=== PATIENT | male | born 1945 | race Caucasian/White ===

== ENCOUNTER 2020-11-17 10:14 | Outpatient (CLI) | payer OTHER, SELFPAY ==
--- NOTE | ~2020-11-17 | XR_ITS ---
EXAMINATION:XR_CERV2-3V_CR DATE: 11/17/2020 10:42 INDICATION: Neck pain TECHNIQUE: AP, lateral, and odontoid views of the cervical spine are provided. COMPARISON: 04/27/2018 FINDINGS: There are 2 mm of stable retrolisthesis of C3 on C4. The odontoid is intact. No fracture is identified. The vertebral body heights are normal. There is unchanged severe loss of intervertebral disc space height at C3-4. There is mild loss of intervertebral disc space height at C4-5 and C6-7. 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 Prevertebral soft tissues are normal. IMPRESSION: 1. Severe cervical spondylosis without acute findings or significant interval change. Reviewed, dictated and finalized at location B. IMPRESSION: 1. Severe cervical spondylosis without acute findings or significant interval jd pappas
== END 2020-11-17 10:15 | disposition home or self-care (01) ==
PROVIDERS: PCP Physician Assistant; Visit Provider Physician Assistant
DX: M54.2 Cervicalgia (principal)
CPT/HCPCS: 72040

== ENCOUNTER 2020-11-23 23:52 | Emergency (ER) | payer OTHER, SELFPAY ==
[2020-11-23 23:55] VITALS: BP 170/90; PULSE 64; RESP 18; O2SAT 97
--- NOTE | 2020-11-24 00:05 | PC.NURSE ---
Pt. signed AMA form and refused to be seen by ERP. Pt. signed paper p risks/benefits explained and got up to walk out of room to waiting room.
--- NOTE | 2020-11-24 00:22 | ED.GENADULT ---
HPI - General Adult General Chief complaint: Alcohol Stated complaint: alchol intoxication Source: patient Mode of arrival: ambulatory History of Present Illness HPI narrative: This gentleman was brought into the ER after he fell off a stool. He immediately chose to leave without being seen. He decided he did not want to be seen or evaluated for any potential injury. He appeared to be doing well when he left, according to the RN. I did not see him, assess him, or see him leave. He was in the ER only very briefly. Related Data Home Medications Medication Instructions Recorded Confirmed Unable to Obtain Home Medications 11/24/20 11/24/20 Allergies Allergy/AdvReac Type Severity Reaction Status Date / Time No Known Allergies Allergy Mild Unverified 10/27/03 17:52 Course Vital Signs Vital signs: Vital Signs Pulse Rate 64 11/23/20 23:55 Respiratory Rate 18 11/23/20 23:55 Blood Pressure 170/90 H 11/23/20 23:55 Pulse Oximetry 97 11/23/20 23:55 Pulse Rate 64 11/23/20 23:55 Respiratory Rate 18 11/23/20 23:55 Blood Pressure 170/90 H 11/23/20 23:55 Pulse Oximetry 97 11/23/20 23:55 Medical Decision Making Vital Signs Vital Signs: Vital Signs Pulse Rate 64 11/23/20 23:55 Respiratory Rate 18 11/23/20 23:55 Blood Pressure 170/90 H 11/23/20 23:55 Pulse Oximetry 97 11/23/20 23:55 Pulse Rate 64 11/23/20 23:55 Respiratory Rate 18 11/23/20 23:55 Blood Pressure 170/90 H 11/23/20 23:55 Pulse Oximetry 97 11/23/20 23:55 Discharge Plan Discharge Clinical Impression: Patient left without being seen Patient Disposition: Left Against Medical Advice Condition: Guarded Prognosis Prescriptions: No Action Unable to Obtain Home Medications RF: 0 Follow-up/Referrals: Sarah,MD Georgi [Primary Care Provider] - Time of Disposition: 00:25
== END 2020-11-24 00:15 | disposition left against medical advice (07) ==
LOC: CHSED 23:54
PROVIDERS: Emergency Provider Emergency Medicine; PCP Family Medicine
DX: Z53.8 Procedure and treatment not carried out for other reasons (principal)
CPT/HCPCS: 99199

== ENCOUNTER 2020-12-18 15:23 | Inpatient (IN) | payer MEDICARE, OTHER, SELFPAY ==
--- NOTE | ~2020-12-18 | MR_ITS ---
EXAMINATION: MR brain/brain stem wo/w con EXAM DATE: 12/19/2020 11:51 INDICATION: Dysarthria, recent stroke stroke. TECHNIQUE: Magnetic resonance imaging (MRI) of the brain/brain stem obtained without contrast. Sagit jannie T1, axial diffusion, gradient echo (T2*), T1, T2, FLAIR sequences obtained. Patient was then inj ected with 10 cc intravenous Multihance contrast. Axial and coronal postcontrast T1 weighted sequence s obtained. Correlation is made to head CT from yesterday. Correlation was made with brain MRI examin ation 04/26/2017. FINDINGS: Bilateral moderate-sized subdural hematomas of different ages, extending along the entire c onvexities and up to about 10 mm in maximal thickness. Signal on the left suggests subacute age and o n the right more chronic age. These are relatively well accommodated due to patient's moderate cerebr al atrophy. There are dilated perivascular spaces. There are no areas of restricted diffusion to suggest acute in farction. There is no acute hemorrhage seen on the T2*, a hemosiderin sensitive sequence. No intrap arenchymal brain mass lesion. There is mild periventricular and subcortical T2/FLAIR signal hyperint ensity, nonspecific but probably related to small vessel ischemic disease (microangiopathy). There is moderate prominence of the sulci and ventricles related to cerebral atrophy. There mild to modera te microangiopathy and moderate cerebral atrophy. Flow voids are seen in the cerebral arteries on the T2-weighted sequences consistent with their expected patency. The orbits are unremarkable. Soft ti ssue is unremarkable. Slight dural enhancement along subdural hematomas. Otherwise no areas of abnor mal enhancement. IMPRESSION: 1. Moderate-sized bilateral subdural hematomas, subacute on the left and more chronic on the right. These are relatively well accommodated due to patient's cerebral atrophy. 2. 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 Reviewed, dictated and finalized at location G. IMPRESSION: 1. Moderate-sized bilateral subdural hematomas, subacute on the left and more chronic on the right. These are relatively well accommodated due to patient's c erebral atrophy. 2. 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
--- NOTE | ~2020-12-18 | CT_ITS ---
EXAMINATION: CT brain wo con EXAM DATE: 12/18/2020 15:48 INDICATION: weakness, left SHERMAN weakness, left sherman, slurred speech . TECHNIQUE: Spiral CT of the head was performed without contrast. Axial, coronal and sagittal images were reviewed. The dose-length product (DLP) for this examination was 605.33 mGy-cm. The exposure w as tailored according to patient size, and iterative reconstruction (ASIR) was used as additional dos e reduction technique. Comparison is made to prior examination from 04/23/2017. FINDINGS: There are small to moderate bilateral subdural fluid collections extending along the entire ty of the convexities measuring slightly higher than CSF attenuation, could be subacute to chronic dooley bdural hematomas. No acute hemorrhage. No hyperdense arteries, intracranial mass, obstructive hydroce phalus, or evidence of acute infarction. Please note that initial head CT has limited sensitivity for small or acute infarctions. Nearly opacified left maxillary sinus which is likely chronic with maxil sade sinus wall thickening. IMPRESSION: 1. Small to moderate bilateral subdural fluid collections attenuation suggests subacute to chronic s ubdural hematomas. 2. No acute intracranial findings. As per stroke protocol, I called these results to emergency room, discussed with Ryley Negron at 12/18/2020 15:53 CDT. States she was diagnosed with stroke couple months ago and also [facility]. Reviewed, dictated and finalized at location A. IMPRESSION: 1. 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 2. No acute intracranial findings. As per stroke protocol, I called these results to emergency room, discussed wit h Regulo Stewart MD at 12/18/2020 15:53 CDT. States she was diagnosed with stroke couple months ago and also [facility].
--- NOTE | ~2020-12-18 | XR_ITS ---
XR chest 1V portable DATE: 12/18/2020 15:48 INDICATION: New weakness TECHNIQUE: Portable upright AP chest on 12/18/2020 at 1559 hours COMPARISON: 08/02/2018 two-view chest FINDINGS: Postoperative changes are again noted from right thoracotomy and gastric pull-through for h istory of esophageal cancer. Cardiomegaly. Aortic calcification, ectasia and unfolding. There is some increased density in the left lower thorax compared to 08/02/2018, which may indicate l eft lower lung infiltrate, atelectasis and/or left pleural effusion. Diffuse osteopenia. IMPRESSION: Limited single portable AP view; suggestion of left lower lung infiltrate, atelectasis an d/or left pleural effusion Cardiomegaly, aortic calcification Gastric pull-through and right thoracotomy Reviewed, dictated and finalized at location A. IMPRESSION: Limited single portable AP view; suggestion of left lower lung infi ltrate, atelectasis and/or left pleural effusion Cardiomegaly, aortic calcification Gastric pull-through and right thoracotomy
[2020-12-18 15:28] VITALS: BP 159/87; PULSE 73; PULSE 74; RESP 16; TEMP 36.2; O2SAT 96
--- NOTE | 2020-12-18 15:28 | ECG_ITS ---
Measurements Intervals [place] Rate: 69 P: 34 CO: 229 QRS: -1 QRSD: 117 T: 29 QT: 426 QTc: 459 Interpretive Statements SINUS RHYTHM WITH FIRST DEGREE AV BLOCK INTRAVENTRICULAR CONDUCTION DELAY BORDERLINE T WAVE ABNORMALITY- INFERIOR LEADS ABNORMAL ECG Electronically Signed On 12-18-2020 17:41:28 CDT by Davi Jimenes D.O.
--- NOTE | 2020-12-18 15:49 | ED.WEAKNESS ---
HPI - Weakness General Chief complaint: Weakness Stated complaint: pt thinks he had a stroke Time Seen by Provider: 12/18/20 15:40 Source: patient Mode of arrival: wheelchair Limitations: no limitations History of Present Illness HPI Narrative: 75-year-old man brought in today by a friend for slurred speech, weakness and not feeling well since approximately 3:00 p.m. this afternoon. Patient states that he had a stroke 2 months ago and that he is having similar symptoms. He denies any falls or injuries and has no chest pain, shortness of breath, palpitations, focal weakness, new numbness, or vomiting. He has a mild left-sided headache. He has had no recent illness, denies fever , alcohol, dysuria, abdominal pain, cough or cold symptoms, and rash. 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 MD Complaint: generalized weakness, numbness ( chronic bilateral lower extremity) and difficulty walking Onset (ago): minute(s) (25) Duration: constant Location: other Migration: none Severity: mild Quality: tingling Relieving factors: none Exacerbating factors: none Context: history of similar Associated symptoms: denies other symptoms Related Data Home Medications Medication Instructions Recorded Confirmed aspirin 325 mg PO DAILY 12/18/20 12/18/20 cholecalciferol (vitamin D3) 50 mcg PO DAILY 12/18/20 12/18/20 pravastatin 40 mg PO HS 12/18/20 12/18/20 spironolacton-hydrochlorothiaz 1 tablet PO EVERY OTHER DAY 12/18/20 12/18/20 verapamil 240 mg PO DAILY 12/18/20 12/18/20 Allergies Allergy/AdvReac Type Severity Reaction Status Date / Time No Known Allergies Allergy Mild Unverified 10/27/03 17:52 Review of Systems Constitutional: Constitutional: Denies chills, Denies fever(s) and Reports weakness Eyes: Eyes: Denies change in vision and Denies photophobia ENT: Denies dysphagia, Denies nasal congestion and Denies sore throat Cardiovascular: Cardiovascular: Denies chest pain and Denies radiating jaw, neck or arm pain Respiratory: Respiratory: Denies cough, Denies dyspnea and Denies wheezing Gastrointestinal: Gastrointestinal: Denies abdominal pain, Denies diarrhea, Denies nausea and Denies vomiting Musculoskeletal: Musculoskeletal: Denies back pain, Denies arthralgias and Denies joint swelling Integumentary/Breasts: Skin/Breast: Denies pruritus, Denies erythema and Denies rash Neurologic: Denies vertigo, Denies dizziness and Denies syncope Hematologic/Lymphatic: Hematologic/Lymphatic: Denies easy bleeding and Denies easy bruising Allergic/Immunologic: Allergic/Immunologic: Denies lip swelling and Denies throat swelling PMFSH Past Medical History Medical History (Updated 12/18/20 @ 17:53 by Regulo Stewart MD) 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 Dyslipidemia Hypertension Social History Social History (Updated 12/18/20 @ 16:46 by Regulo Stewart MD) Smoking status: Former smoker Alcohol intake: current Substance use: never Living arrangements: alone Occupation/Education: retired Exam Const: General: healthy appearing, no acute distress and alert Orientation/consciousness: patient oriented x3 Limitations: no limitations HENMT: Head: normal to inspection Ears: external ears normal, TM's normal bilaterally and EAC's normal General nose exam: Normal nares present Face and sinus: normal facial exam Mouth: Yes moist mucous membranes Throat: posterior oropharynx normal Eyes: Conjunctivae: conjunctivae normal Pupils: Equal, round and reactive pupils present EOM: EOMs intact bilaterally Resp: Effort & Inspection: normal respiratory effort and labored Auscultation: clear to auscultation bilaterally, rales, rhonchi and wheezes Cardio: Rate: regular rate Rhythm: regular rhythm Heart sounds: no murmurs GI: GI Palp: Yes Soft to palpation and No Tenderness to palpation present (GI) S
[2020-12-18 16:07] LABS: Base Excess ABG -6.9 mmol/L (0-2); Basophils Absolute Auto 0.05 K/mm3 (0.00-0.10); Basophils Percent Auto 0.3 % (0.0-1.0); Carboxyhemoglobin 0.4 % (0-1.5); Eosinophils Percent Auto 2.1 % (1.0-6.0); HCO3 ABG 17.1 mmol/L (23-29); Hematocrit 44.1 % (37.0-46.0); Hemoglobin 14.5 g/dL (12.4-15.3); Immature Granulocyte Absolute 0.08 K/mm3 (0.00-0.00); Immature Granulocyte Percent A 0.6 % (0.0-0.0); Lymphocytes Absolute Auto 1.53 K/mm3 (1.10-4.50); Lymphocytes Percent Auto 10.5 % (18.0-42.0); Mean Corpuscular HGB Conc 32.9 g/dL (32.0-36.0); Mean Corpuscular Volume 91.1 fL (78.0-102.0); Mean Platelet Volume 9.3 fl (8.7-11.0); Methemoglobin ABG 0.3 % (0-1.5); Monocytes Absolute Auto 0.75 K/mm3 (0.10-0.90); Monocytes Percent Auto 5.2 % (2.0-11.0); Neutrophils Absolute Auto 11.8 K/mm3 (1.7-7.2); Neutrophils Percent Auto 81.3 % (50.0-70.0); Oxygen Content ABG 20.2 %vol (16.0-22.0); Oxygen Saturation ABG 96.2 % (95-97); Oxyhemoglobin 95.5 % (94-100); PCO2 ABG 30.7 mmHg (35-45); PO2 ABG 88.4 mmHg (75-85); Platelet Count Result 236 K/mm3 (150-420); Red Blood Count 4.84 M/mm3 (4.70-6.10); Red Cell Distribution Width 12.7 % (11.6-14.4); Reduced Hemoglobin 3.8 % (0-1.5); White Blood Count 14.5 K/mm3 (4.8-10.8); pH ABG 7.36 (7.35-7.45)
[2020-12-18 16:08] VITALS: BP 134/70; PULSE 75; RESP 16; O2SAT 97
--- NOTE | 2020-12-18 16:09 | PC.NURSE ---
[facility] CONTACTED FOR PT TRANSFER
[2020-12-18 16:10] LABS: Device ROOM AIR; Modified Allen's Test Pass; Site Drawn RIGHT RADIAL
--- NOTE | 2020-12-18 16:17 | PC.NURSE ---
Dr. Stewart speaking with Dr. Burks with [facility] neurology.
[2020-12-18 16:21] LABS: Partial Thromboplastin Time 30.7 SEC (23.90-30.70); Prothrombin Time 11.1 Seconds (9.50-12.10)
[2020-12-18 16:26] LABS: Alanine Aminotransferase 24 U/L (16-63); Albumin Level 3.8 g/dL (3.4-5.0); Alkaline Phosphatase 106 U/L (46-116); Anion Gap 11 mmol/L (8-16); Aspartate Amino Transferase 15 U/L (15-37); Bilirubin,Total 0.5 mg/dL (0.00-1.00); Blood Urea Nitrogen 17 mg/dL (7-18); Calcium 9.7 mg/dL (8.5-10.1); Carbon Dioxide 27 mmol/L (21-32); Chloride 97 mmol/L (98-108); Estimated CRCL calculation 45 ml/min; Estimated Glomerular Filt Rate 48; Glucose 168 mg/dL (70-99); Osmolality Calculated 285 mOsm/kg (285-295); Sodium 135 mmol/L (136-145); Total Protein 7.7 g/dL (6.4-8.2); Troponin I 8.1 ng/L (0.00-60.4)
[2020-12-18 16:27] LABS: Ethanol < 3 mg/dL (0-6)
[2020-12-18 17:03] LABS: SARS-CoV-2 RNA PCR Negative (Negative)
[2020-12-18 17:05] LABS: Lactic Acid Reflex 3.2 mmol/L (0.4-2.0)
[2020-12-18] MEDS: SODIUM CHLORIDE 0.9% IV 1,000 ML 999 ML IV CONT (17:30)
[2020-12-18 17:45] VITALS: BP 139/86; PULSE 62; RESP 20; O2SAT 95
[2020-12-18 17:50] VITALS: BP 133/80; PULSE 70; RESP 16; TEMP 37.1; O2SAT 94; BMI 25.4
--- NOTE | 2020-12-18 17:50 | ADMGEN ---
This patient, Raymond Redd, was admitted to 2nd Floor Room 203-2. Patient/family oriented to hospital policies and general routines including ID bracelet, bed and alarms, visiting hours, pain management, procedures, bathroom and other care routines, personal items, smoking policy, room service/diet, and visiting hours. Information on how to activate the Rapid Response Team has been discussed. Patient/Family are encouraged to report perceived risks to care and to ask questions if they do not understand what they are told or what they should do.
[2020-12-18 19:23] LABS: Add Urine Microscopic? YES; Appearance Urine Clear (Clear); Bilirubin Urine Negative (Negative); Blood Urine 2+ (Negative); Color Urine Yellow (Yellow); Glucose Urine UA Negative (Negative); Ketones Urine Negative (Negative); Leukocyte Esterase Ur Negative LEU/UL (Negative); Nitrate Urine Negative (Negative); Protein Urine Negative (Negative); Urobilinogen Urine 0.2 mg/dL (0.2-1.0); pH Urine 5.5 (5.0-8.0)
[2020-12-18 19:30] LABS: RBC Urine 0-2 /hpf (0-2); WBC Urine 0-3 /hpf (0-3)
[2020-12-18 19:31] LABS: Bacteria Urine Trace /hpf; Squamous Epithelial Cell Urine Rare /hpf (Few)
[2020-12-18 19:48] LABS: Reflex Lactic Acid Yes or No Add Lactic
[2020-12-18 20:00] VITALS: BP 127/61; PULSE 70; RESP 20; TEMP 36.7; O2SAT 95
[2020-12-18] MEDS: PRAVASTATIN SODIUM 20 MG TABLET 40 MG PO (20:03)
[2020-12-18 20:44] LABS: Lactic Acid 2.3 mmol/L (0.4-2.0)
[2020-12-18] MEDS: SODIUM CHLORIDE 0.9% IV 1,000 ML 100 ML IV CONT (22:02)
[2020-12-19] VITALS: BP 134/70; PULSE 60; PULSE 61; RESP 20; TEMP 36.5; O2SAT 94
[2020-12-19] MEDS: SODIUM CHLORIDE 0.9% IV 1,000 ML 999 ML IV CONT (03:06)
[2020-12-19] MEDS: SODIUM CHLORIDE 0.9% IV 1,000 ML 100 ML IV CONT ×2 (03:10→09:41)
[2020-12-19 04:00] VITALS: BP 145/77; PULSE 61; PULSE 63; RESP 20; TEMP 36.6; O2SAT 97
[2020-12-19 05:36] LABS: Basophils Absolute Auto 0.04 K/mm3 (0.00-0.10); Basophils Percent Auto 0.4 % (0.0-1.0); Eosinophils Absolute Auto 0.42 K/mm3 (0.02-0.50); Eosinophils Percent Auto 4.2 % (1.0-6.0); Hematocrit 38.2 % (37.0-46.0); Immature Granulocyte Absolute 0.05 K/mm3 (0.00-0.00); Immature Granulocyte Percent A 0.5 % (0.0-0.0); Lymphocytes Percent Auto 22.9 % (18.0-42.0); Mean Corpuscular Hemoglobin 30.6 pg (27.0-31.0); Mean Corpuscular Volume 89.9 fL (78.0-102.0); Monocytes Absolute Auto 0.84 K/mm3 (0.10-0.90); Monocytes Percent Auto 8.4 % (2.0-11.0); Neutrophils Absolute Auto 6.4 K/mm3 (1.7-7.2); Neutrophils Percent Auto 63.6 % (50.0-70.0); Platelet Count Result 213 K/mm3 (150-420); Red Blood Count 4.25 M/mm3 (4.70-6.10); Red Cell Distribution Width 12.9 % (11.6-14.4)
[2020-12-19 05:47] LABS: Lactic Acid Reflex 1.9 mmol/L (0.4-2.0)
[2020-12-19 05:54] LABS: Alanine Aminotransferase 18 U/L (16-63); Alkaline Phosphatase 89 U/L (46-116); Anion Gap 10 mmol/L (8-16); Aspartate Amino Transferase 15 U/L (15-37); Bilirubin,Total 0.5 mg/dL (0.00-1.00); Blood Urea Nitrogen 13 mg/dL (7-18); Calcium 8.8 mg/dL (8.5-10.1); Carbon Dioxide 26 mmol/L (21-32); Chloride 103 mmol/L (98-108); Estimated CRCL calculation 54 ml/min; Estimated Glomerular Filt Rate > 60; Glucose 105 mg/dL (70-99); Osmolality Calculated 288 mOsm/kg (285-295); Potassium 3.6 mmol/L (3.5-5.1); Sodium 139 mmol/L (136-145); Total Protein 6.1 g/dL (6.4-8.2)
[2020-12-19 05:55] LABS: Troponin I 8.7 ng/L (0.00-60.4)
[2020-12-19 08:00] VITALS: BP 136/76; PULSE 60; PULSE 76; RESP 18; TEMP 37.1; O2SAT 94
[2020-12-19] MEDS: ASPIRIN 325 MG ENTERIC TABLET PO (09:36)
[2020-12-19] MEDS: VERAPAMIL HCL ER 120 MG TABLET 240 MG PO (09:36)
[2020-12-19] MEDS: hydroCHLOROthiazide 25 MG TABLET PO (09:36)
[2020-12-19] MEDS: CHOLECALCIFEROL 1,000 UNITS TABLET 2000 UNITS PO (09:36)
[2020-12-19] MEDS: SPIRONOLACTONE 25 MG TABLET PO (09:37)
--- NOTE | 2020-12-19 10:34 | PM.IMPN ---
Subjective Date/time seen: 12/19/20 10:34 PATIENT BEING TRANSFERED TO [facility] FOR NEUROSURGICAL CONSULTATION PLEASE SEE SAME DAY ADMIT DISCHARGE NOTE Review of Systems Constitutional: Constitutional: Reports no additional constitutional complaints, Denies chills, Denies fever(s), Denies headache(s) and Reports lethargy Eyes: Eyes: Reports no additional eye complaints, Denies blurry vision and Denies change in vision ENT: Reports system reviewed and no additional complaints, except as documented and Denies dizziness Cardiovascular: Cardiovascular: Reports no additional cardiovascular complaints, Denies chest pain and Denies chest pain at rest Respiratory: Respiratory: Reports no additional respiratory complaints, Denies cough, Denies dyspnea and Denies dyspnea on exertion Gastrointestinal: Gastrointestinal: Reports no additional gastrointestinal complaints and Denies abdominal pain Musculoskeletal: Musculoskeletal: Reports no additional musculoskeletal complaints Neurologic: Reports system reviewed and no additional complaints, except as documented, Reports Abnormal speech present (Pt states he does not feel like he is talking normal) and Reports numbness (lower extremities, chronic) Comments: state he does not believe he could get up and walk at the moment Psychiatric: Psychiatric: Reports no additional psychiatric complaints Exam Const: General: cooperative, no acute distress, alert, awake and Physically active (engages in communication and assessment); No confusion, diaphoretic or intoxicated appearing Nutritional Appearance: average body habitus Orientation/consciousness: oriented to person, oriented to place and oriented to time HENMT: Head: normal to inspection, normocephalic, atraumatic and other (No abrasions noticed from Pts fall 3 weeks ago) Ears: hearing grossly normal bilaterally General nose exam: Normal external nose present Face and sinus: normal facial exam and face symmetric Eyes: General: appearance normal, both eyes and all related structures Alignment and Position: alignment normal and position normal Direct Ophthalmoscopy: no photophobia Neck: Neck: normal visual inspection, no lymphadenopathy and no JVD Resp: Effort & Inspection: normal respiratory effort and able to speak in complete sentences (with a few pauses while searching for correct words) Auscultation: clear to auscultation bilaterally Cardio: Rate: regular rate Heart sounds: S1 normal heart sound present and S2 normal heart sound present GI: GI Palp: Yes Soft to palpation and No Tenderness to palpation present (GI) Auscultation: normal bowel sounds Skin: General skin exam: normal color Trauma: no lacerations or abrasions Neuro: General: oriented to person, oriented to place and oriented to time Cranial nerves: Yes CN's II-XII intact bilaterally, Yes Bilaterally intact EOM present, Yes Normal facial strength present, Yes facial symmetry, Yes Midline tongue present, Yes Normal hearing present and Yes Ability to bilaterally elevate shoulders present Cognition (Neuro): normal cognition Speech: Abnormal speech present (searches for right words, does not use incorrect words) Coordination: No [id number] test normal (misses nose and finger at times ) Extrem: General: normal to inspection, full ROM, no pedal edema and no calf tenderness Right upper extremity: normal to inspection Left upper extremity: normal to inspection Right lower extremity: normal to inspection Left lower extremity: normal to inspection Psych: Appearance: grossly normal Mental Status: mental status grossly normal Affect: normal affect Attitude: cooperative Thought content: Yes Normal thought content present Objective Data Vital Signs Vital Signs: Vital Signs - 24 hr 12/18/20 15:28 12/18/20 16:08 12/18/20 17:45 Temperature 97.2 F L Pulse Rate 74 75 62 Respiratory Rate 16 16 20 Blood Pressure 159/87 H 134/70 139/86 Pulse Oximet
--- NOTE | 2020-12-19 11:00 | PC.NURSE ---
Patient transported off of floor via wheelchair for MRI
--- NOTE | 2020-12-19 11:06 | PM.IMHP ---
H&P: HPI History of Present Illness Date/Time: 12/19/20 11:06 PATIENT BEING TRANSFERED TO [facility] FOR NEUROSURGICAL CONSULTATION PLEASE SEE SAME DAY ADMIT DISCHARGE NOTE Called to room by RN as Pt stated he was feeling the same again as when he came into the ER yesterday. Pt states that he does not feel like he can get his words out correctly. He also indicated that he does not feel like he could get up and be able to walk. Pt denies any CP, SOB, Abdominal issues or pain. He admits to LE neuropathy/numbness, feeling like he may not be able to walk, states that he is an alcoholic who stopped drinking 27 years ago until recently when he found out he had esophageal CA and drank before he went in for a procedure. Since then he stated he went out with some friends and drank to the point he fell down hitting his head about 3 weeks ago. He came to the ER but left without being seen. Review of Systems Constitutional: Constitutional: Reports no additional constitutional complaints, Denies chills, Denies fever(s), Denies headache(s) and Reports lethargy Eyes: Eyes: Reports no additional eye complaints, Denies blurry vision and Denies change in vision ENT: Reports system reviewed and no additional complaints, except as documented, Reports Normal hearing present, Denies dizziness and Denies headache(s) Cardiovascular: Cardiovascular: Reports no additional cardiovascular complaints, Denies chest pain, Denies chest pain at rest, Denies dyspnea and Denies dyspnea on exertion Respiratory: Respiratory: Reports no additional respiratory complaints, Denies cough, Denies dyspnea and Denies dyspnea on exertion Gastrointestinal: Gastrointestinal: Reports no additional gastrointestinal complaints and Denies abdominal pain Musculoskeletal: Musculoskeletal: Reports no additional musculoskeletal complaints and Reports numbness (lower extremities, chronic) Neurologic: Reports system reviewed and no additional complaints, except as documented, Reports Normal hearing present, Reports Abnormal speech present (Pt states he does not feel like he is talking normal), Denies confusion, Denies dizziness, Denies headache(s) and Reports numbness (lower extremities, chronic) Psychiatric: Psychiatric: Reports no additional psychiatric complaints and Denies confusion PMF Past Medical History Medical History (Updated 12/19/20 @ 15:46 by Galileo Rangel, SIZE CHANGER-C) 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 Dyslipidemia Hypertension Social History Social History (Updated 12/18/20 @ 16:46 by Regulo Stewart MD) Smoking status: Former smoker Tobacco type: cigarettes Alcohol intake: current Drinks per week: 3 Substance use: never Living arrangements: alone Occupation/Education: retired Gender identity (if verbalized by the patient): Male Sexual Orientation (if Verbalized by the Patient): Straight or Heterosexual Spiritual care concerns: No Meds Home Medications and Allergies Home Medications Medication Instructions Recorded Confirmed Type cholecalciferol (vitamin D3) 50 mcg PO DAILY 12/18/20 12/18/20 History pravastatin 40 mg PO HS 12/18/20 12/18/20 History spironolacton-hydrochlorothiaz 1 tablet PO EVERY OTHER DAY 12/18/20 12/18/20 History verapamil 240 mg PO DAILY 12/18/20 12/18/20 History Allergies Allergy/AdvReac Type Severity Reaction Status Date / Time adhesive tape AdvReac Mild Rash Verified 12/18/20 18:51 Vital Signs Vital Signs - 24 hr 12/18/20 15:28 12/18/20 16:08 12/18/20 17:45 Temperature 97.2 F L Pulse Rate 74 75 62 Respiratory Rate 16 16 20 Blood Pressure 159/87 H 134/70 139/86 Pulse Oximetry 96 97 95 12/18/20 17:50 12/18/20 20:00 12/19/20 00:00 Temperature 98.7 F 98.0 F 97.7 F Pulse Rate 70 70 61 Respiratory Rate 16 20 20 Blood Pressure 133/80 127/61 134/70 Pulse Oximetry 94 95 94 12/19/20 04:00 12/19/20 08:00 Temperature 97.9 F 98.7 F Pulse Rate 61 76 Respiratory Rate 20 18 B
[2020-12-19 11:34] LABS: Vitamin B12 642 pg/mL (193-986)
[2020-12-19 12:00] VITALS: BP 145/73; PULSE 74; PULSE 77; RESP 18; TEMP 37.4; O2SAT 97
--- NOTE | 2020-12-19 15:26 | PM.SD2 ---
Same Day Admit/Disch: HPI History of Present Illness Chief complaint: pt thinks he had a stroke Narrative: Raymond Redd is a 75 year old male with a recent history of the following. 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 Burks as which time according to ER notes Bilat Carotids/Echo/CTA and MRI of the Brain were complete with no significant findings, 3 weeks ago Pt went out with friends had a little too much to drink fell down and hit his head. He came to [facility] at that time but left prior to being seen by the provider that was on that day. That date was 11/24/2020. PMHx of Pneumonia, HTN, Dyslipidemia CT Head 12/18/2020 IMPRESSION: 1. 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 2. No acute intracranial findings. MRI of Brain 12/19/2020 IMPRESSION: 1. Moderate-sized bilateral subdural hematomas, subacute on the left and more chronic on the right. These are relatively well accommodated due to patient's cerebral atrophy. 2. 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 Contacted the [facility] as Pts first choice to be transferred however I was informed that the [facility] neurosurgical team does not do surgery. I then called the Pt's second choice [facility] which he was accepted both by the Neurosugeon Dr. Florez and Hospitalist Dr. East. Thank you very much for talking with be regarding this Pt and transfer to your facility. Called to room by RN as Pt stated he was feeling the same again as when he came into the ER yesterday. Pt states that he does not feel like he can get his words out correctly. He also indicated that he does not feel like he could get up and be able to walk. Pt denies any CP, SOB, Abdominal issues or pain. He admits to LE neuropathy/numbness (chronic), feeling like he may not be able to walk, states that he is an alcoholic who stopped drinking 27 years ago until recently when he found out he had esophageal CA and drank before he went in for a procedure. Since then he stated he went out with some friends and drank to the point he fell down hitting his head about 3 weeks ago. He came to the ER but left without being seen. 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 Dyslipidemia Hypertension Social History Social History (Updated 12/18/20 @ 16:46 by Regulo Stewart MD) Smoking status: Former smoker Tobacco type: cigarettes Alcohol intake: current Drinks per week: 3 Substance use: never Living arrangements: alone Occupation/Education: retired Gender identity (if verbalized by the patient): Male Sexual Orientation (if Verbalized by the Patient): Straight or Heterosexual Spiritual care concerns: No Same Day Admit/Disch: Med Pre-admit Medications Home Medications Medication Instructions Recorded Confirmed Type cholecalciferol (vitamin D3) 50 mcg PO DAILY 12/18/20 12/18/20 History pravastatin 40 mg PO HS 12/18/20 12/18/20 History spironolacton-hydrochlorothiaz 1 tablet PO EVERY OTHER DAY 12/18/20 12/18/20 History verapamil 240 mg PO DAILY 12/18/20 12/18/20 History Exam Const: General: cooperative, no acute distress, alert, awake and Physically active (engages in communication and assessment); No confusion, diaphoretic or intoxicated appearing Nutritional Appearance: average body habitus Orientation/consciousness: oriented to person, oriented to place, oriented to time and No confusion HENMT: Head: normal to inspection, normocephalic, atraumatic and other (No abrasions noticed from Pts fall 3 weeks ago) Ears: hearing grossly normal bilaterally General nose exam: Normal external nose present Face and sinus: normal facial exam
[2020-12-19 16:00] VITALS: BP 165/89; PULSE 71; PULSE 78; RESP 18; TEMP 37.3; O2SAT 95
[2020-12-19 20:00] VITALS: BP 167/79; PULSE 68; PULSE 78; RESP 18; TEMP 37.1; O2SAT 94
--- NOTE | 2020-12-19 22:15 | PC.NURSE ---
Patient's son called. He requested info about his father's status with transfer. When told he had been accepted [facility] but were waiting for an open bed. Became irate and upset. Began using profanity at nurse and threatened to ijeoma. Stated all we had to do was make a phone call and we could get him transferred to [facility]. Attempted to explain process was more involved than that but he was not listening. Spoke with Dr. Denny call to [place] access line-currently Neuro ICU does not have openings and not anticipating at any opening soon. Asked if he wanted us to refer father. Stated he needed to make some phone calls. Did apologize for language.
--- NOTE | 2020-12-19 22:44 | PC.NURSE ---
Dr. Denny came up to speak with patient. Okayed giving food at this time.
--- NOTE | 2020-12-19 22:49 | PM.EVENT ---
Event Note Event Note Event Note: patient awaiting transfer to [facility] neurology unit, the patient has been accepted but apparently there is currently no bed available and they will transfer and call as soon as a bed is made available. The patient has been kept NPO and the patient is upset and has been calling family including his son which according to nurses has been using threatening tones, threatening to D[facility] the hospital. But the patient is stable neurologically he is currently stable with no neurological deficits currently no slurred speech. Talked to patient and advised him that we will have him eat something and have something to drink and he voiced his understanding still little frustrated that we could in some transfer him to [facility], but told the patient that there is currently no beds available at that facility. Again he voices understanding and he is a little less anxious secondary to the fact that he is stable and that was made apparent to him, and that he is able to have something to eat.
[2020-12-20] VITALS: BP 142/84; PULSE 62; PULSE 66; RESP 18; TEMP 37.1; O2SAT 93
--- NOTE | 2020-12-20 02:05 | PC.NURSE ---
Received call from [facility] access center for update on bed. Patient still on lis. Hopefully open bed today.
[2020-12-20 04:00] VITALS: BP 143/79; PULSE 64; PULSE 66; RESP 18; TEMP 37.1; O2SAT 93
[2020-12-20 08:00] VITALS: BP 155/83; PULSE 63; PULSE 70; RESP 18; TEMP 37; O2SAT 94
[2020-12-20] MEDS: VERAPAMIL HCL ER 120 MG TABLET 240 MG PO (09:58)
[2020-12-20] MEDS: ASPIRIN 325 MG ENTERIC TABLET PO (09:58)
[2020-12-20] MEDS: CHOLECALCIFEROL 1,000 UNITS TABLET 2000 UNITS PO (09:58)
--- NOTE | 2020-12-20 10:24 | PC.NURSE ---
Report called to [facility] at [place] room 40A
--- NOTE | 2020-12-20 11:01 | PM.EVENT ---
Event Note Event Note Event Note: At the start of todays shift I was informed that [facility] did not have any beds for this Pt. Yesterday when I spoke with the U doctors and the nurse at the transfer line I was informed that the Pt was accepted. At NO time did anyone mention no beds available or that the Pt would be on a wait list during yesterdays phone calls. I called [facility] this morning promptly and spoke with Dr. Luis, neurosurgeon, who accepted the Pt. I was in formed by the nurse at the transfer line for [place] they had a few beds available. Pt is going to room [id number] at the [facility]. 1105 hours approximately the Ambulance has arrived to transport the Pt to [place].
--- NOTE | 2020-12-20 11:05 | PC.NURSE ---
Patient transported off of floor via stretcher with [facility] being transferred to [place] room 40A.
[2020-12-25 07:48] LABS: Red Blood Cell Folate 708 ng/mL RBC (>280)
== END 2020-12-20 11:05 | disposition short-term general hospital (02) | DRG 82 ==
LOC: CHSED 16:50 → CHS2ND 17:27
PROVIDERS: Nurse Practitioner Family; Admitting Provider Emergency Medicine; Emergency Provider Emergency Medicine; PCP Physician Assistant; Visit Provider Emergency Medicine
DX: R47.1 Dysarthria and anarthria (principal); S06.5X9A Traumatic subdural hemorrhage with loss of consciousness of unspecified duration, initial encounter; R20.0 Anesthesia of skin; R06.02 Shortness of breath; J44.9 Chronic obstructive pulmonary disease, unspecified; J18.9 Pneumonia, unspecified organism; C15.9 Malignant neoplasm of esophagus, unspecified; G62.9 Polyneuropathy, unspecified; Z20.822 Contact with and (suspected) exposure to COVID-19; Z87.891 Personal history of nicotine dependence; G81.91 Hemiplegia, unspecified affecting right dominant side; E78.5 Hyperlipidemia, unspecified; I10 Essential (primary) hypertension; Z86.73 Personal history of transient ischemic attack (TIA), and cerebral infarction without residual deficits; W19.XXXA Unspecified fall, initial encounter
CPT/HCPCS: 36415; 36600; 70450; 70553; 71045; 80053; 80307; 81001; 82375; 82607; 82747; 82805; 83050; 83605; 84484; 85025; 85610; 85730; 87040; 87086; 93005; 99285; A9270; A9577; C9803; J0456; J0696; J7030; U0003; U0005

== ENCOUNTER 2021-02-21 12:30 | Emergency (ER) | payer MEDICARE, OTHER, SELFPAY ==
--- NOTE | ~2021-02-21 | CT_ITS ---
EXAMINATION: CT brain wo con INDICATION: Left hand numbness COMPARISON: 12/18/2020 TECHNIQUE: Standard unenhanced head CT. The dose-length product (DLP) was 681.00 mGy-cm. The mA was a djusted according to patient size. Iterative reconstruction technique was employed. FINDINGS: There are persistent bilateral extra-axial fluid collections with slight increase in size a nd heterogeneous attenuation since the comparison examination. There is slightly worsened mass effect on the brain. There is no acute intraparenchymal hemorrhage. No evidence of mass lesion. No evidence of acute infarction. There is mild periventricular and subcortical hypodensity probably related to s mall vessel ischemic disease. There is mild prominence of the sulci and ventricles related to cerebra l atrophy. Intracranial calcified cerebral atherosclerosis is noted. There is no mass effect or midli ne shift. The orbits and soft tissues are unremarkable. There is chronic left maxillary sinusitis. IMPRESSION: 1. Bilateral subdural hematomas with interval increase in thickness and heterogeneous attenuation. Fi ndings likely reflect interval acute subdural hemorrhage with evolving hematomas. These findings were discussed with Dr. Luis Chacon MD in the Emergency Department at 1357 hours on 02/21/2021. 2. Age related findings. Reviewed, dictated and finalized at location A. IMPRESSION: 1. Bilateral subdural hematomas with interval increase in thickness and heterog eneous attenuation. Findings likely reflect interval acute subdural hemorrhage with evolving hematomas. These findings were discussed with Dr. Luis Chacon MD in the Emergency Department at 1357 hours on 02/21/2021. 2. Age related findings.
[2021-02-21 12:30] VITALS: BP 135/85; PULSE 75; PULSE 80; RESP 14; TEMP 36.8; O2SAT 96
[2021-02-21 12:54] LABS: Glucose Point of Care 96 mg/dl (65-105)
--- NOTE | 2021-02-21 13:22 | ECG_ITS ---
Measurements Intervals [place] Rate: 77 P: 33 MN: 222 QRS: 0 QRSD: 114 T: 15 QT: 371 QTc: 420 Interpretive Statements SINUS RHYTHM WITH FIRST DEGREE AV BLOCK LOW QRS VOLTAGE IN LIMB LEADS ABNORMAL ECG Electronically Signed On 02-21-2021 20:48:46 CDT by Davi Jimenes D.O.
--- NOTE | 2021-02-21 13:23 | ED.WEAKNESS ---
HPI - Weakness General Chief complaint: Weakness Stated complaint: left hand when numb Time Seen by Provider: 02/21/21 12:55 Source: patient Mode of arrival: ambulatory Limitations: no limitations History of Present Illness HPI Narrative: Patient presents after having transient numbness in left hand. This lasted about 15 minutes and resolved. This appear to affect both the distribution of the radial and ulnar nerve. He has had also a sensation of his balance being off, which has been moderately severe, and ongoing throughout this day, when walking. He has no focal weakness at present. Onset (ago): hour(s) Duration: intermittent Migration: none Severity: moderate Quality: numbness Relieving factors: other (spontaneous relief) Exacerbating factors: none Associated symptoms: denies other symptoms Related Data Home Medications Medication Instructions Recorded Confirmed cholecalciferol (vitamin D3) 50 mcg PO DAILY 12/18/20 02/21/21 pravastatin 40 mg PO HS 12/18/20 02/21/21 spironolacton-hydrochlorothiaz 1 tablet PO EVERY OTHER DAY 12/18/20 02/21/21 verapamil 240 mg PO DAILY 12/18/20 02/21/21 folic acid 1 mg PO DAILY 02/21/21 02/21/21 levetiracetam 500 mg PO BID 02/21/21 02/21/21 Allergies Allergy/AdvReac Type Severity Reaction Status Date / Time adhesive tape AdvReac Mild Rash Verified 12/18/20 18:51 Review of Systems Constitutional: Constitutional: Reports no additional constitutional complaints Eyes: Eyes: Reports no additional eye complaints ENT: Reports system reviewed and no additional complaints, except as documented Cardiovascular: Cardiovascular: Reports no additional cardiovascular complaints Respiratory: Respiratory: Reports no additional respiratory complaints Gastrointestinal: Gastrointestinal: Reports no additional gastrointestinal complaints Genitourinary: Genitourinary: Reports no additional male genitourinary complaints Musculoskeletal: Musculoskeletal: Reports no additional musculoskeletal complaints Integumentary/Breasts: Skin/Breast: Reports system reviewed and no additional complaints, except as docu Neurologic: Reports system reviewed and no additional complaints, except as documented Psychiatric: Psychiatric: Reports no additional psychiatric complaints Endocrine: Endocrine: Reports no additional endocrine complaints Hematologic/Lymphatic: Hematologic/Lymphatic: Reports no additional hematologic/lymphatic complaints Allergic/Immunologic: Allergic/Immunologic: Reports no additional allergic/immunologic complaints [facility] Past Medical History Medical History (Updated 02/21/21 @ 18:59 by Luis Chacon MD) 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 Dyslipidemia Esophageal cancer Hypertension Surgical History Surgical History (Updated 02/21/21 @ 18:42 by Luis Chacon MD) History of esophageal surgery Hx of hernia repair Family History Family History Other Family history non-contributory Social History Social History Smoking status: Former smoker Tobacco type: cigarettes Alcohol intake: current Drinks per week: 3 Substance use: never Gender identity (if verbalized by the patient): Male Spiritual care concerns: No Exam Const: General: no acute distress and alert Orientation/consciousness: patient oriented x3 HENMT: Head: normal to inspection Ears: external ears normal and TM's normal bilaterally General nose exam: Normal external nose present Mouth: Yes Normal oral and palatal mucosa present Throat: posterior oropharynx normal Eyes: Conjunctivae: conjunctivae normal Neck: Neck: normal visual inspection Chest: Chest palpation & inspection: normal inspection of the chest Resp: Effort & Inspection: normal respiratory effort Auscultation: clear to auscultation bilaterally Cardio: Rate: regular rate Rhythm: regular rhythm
[2021-02-21 13:48] LABS: Basophils Absolute Auto 0.04 K/mm3 (0.00-0.10); Basophils Percent Auto 0.4 % (0.0-1.0); Eosinophils Absolute Auto 0.26 K/mm3 (0.02-0.50); Eosinophils Percent Auto 2.8 % (1.0-6.0); Hemoglobin 14.8 g/dL (12.4-15.3); Immature Granulocyte Absolute 0.03 K/mm3 (0.00-0.00); Immature Granulocyte Percent A 0.3 % (0.0-0.0); Lymphocytes Absolute Auto 2.42 K/mm3 (1.10-4.50); Lymphocytes Percent Auto 25.6 % (18.0-42.0); Mean Corpuscular HGB Conc 34.4 g/dL (32.0-36.0); Mean Corpuscular Hemoglobin 30.5 pg (27.0-31.0); Mean Corpuscular Volume 88.5 fL (78.0-102.0); Mean Platelet Volume 8.5 fl (8.7-11.0); Monocytes Absolute Auto 0.93 K/mm3 (0.10-0.90); Monocytes Percent Auto 9.8 % (2.0-11.0); Neutrophils Absolute Auto 5.8 K/mm3 (1.7-7.2); Neutrophils Percent Auto 61.1 % (50.0-70.0); Platelet Count Result 218 K/mm3 (150-420); Red Blood Count 4.86 M/mm3 (4.70-6.10); Red Cell Distribution Width 13.1 % (11.6-14.4); White Blood Count 9.5 K/mm3 (4.8-10.8)
[2021-02-21 14:02] LABS: Partial Thromboplastin Time 31.5 SEC (23.90-30.70); Prothrombin Time 10.9 Seconds (9.50-12.10)
[2021-02-21 14:04] LABS: Alanine Aminotransferase 25 U/L (16-63); Alkaline Phosphatase 102 U/L (46-116); Anion Gap 12 mmol/L (8-16); Aspartate Amino Transferase 16 U/L (15-37); Bilirubin,Total 0.6 mg/dL (0.00-1.00); Blood Urea Nitrogen 18 mg/dL (7-18); Calcium 9.7 mg/dL (8.5-10.1); Carbon Dioxide 24 mmol/L (21-32); Chloride 99 mmol/L (98-108); Estimated CRCL calculation 46 ml/min; Estimated Glomerular Filt Rate 50; Glucose 83 mg/dL (70-99); Osmolality Calculated 280 mOsm/kg (285-295); Potassium 4.4 mmol/L (3.5-5.1); Sodium 135 mmol/L (136-145); Total Protein 7.5 g/dL (6.4-8.2)
[2021-02-21 14:15] LABS: Add Urine Microscopic? NO; Appearance Urine Clear (Clear); Bilirubin Urine Negative (Negative); Blood Urine Negative (Negative); Color Urine Light Yellow (Yellow); Glucose Urine UA Negative (Negative); Ketones Urine Negative (Negative); Leukocyte Esterase Ur Negative LEU/UL (Negative); Nitrate Urine Negative (Negative); Protein Urine Negative (Negative); Urobilinogen Urine 0.2 mg/dL (0.2-1.0)
[2021-02-21 15:32] LABS: SARS-CoV-2 Ag Negative (Negative)
[2021-02-21 18:30] VITALS: BP 119/76; PULSE 72; RESP 16; O2SAT 95
--- NOTE | 2021-02-21 18:52 | PC.NURSE ---
pt chose to be transferred to [facility] because his neurologist is there. [facility] transfer line contacted at [phone]. call back at [phone], dr. hickey accepts patient. 1721 [facility] provides room [id number] and number for report. [facility] for transfer. 1756 rn provides telephone report to alber carreon.
== END 2021-02-21 18:40 | disposition short-term general hospital (02) ==
PROVIDERS: Emergency Provider Emergency Medicine; PCP Physician Assistant
DX: S06.5X9A Traumatic subdural hemorrhage with loss of consciousness of unspecified duration, initial encounter (principal); Z20.822 Contact with and (suspected) exposure to COVID-19; E78.5 Hyperlipidemia, unspecified; I10 Essential (primary) hypertension; Z85.01 Personal history of malignant neoplasm of esophagus; Z87.891 Personal history of nicotine dependence
CPT/HCPCS: 36415; 70450; 80053; 81003; 82948; 85025; 85610; 85730; 87426; 93005; 99285; C9803